=== PATIENT | female | born 1985 ===

== ENCOUNTER 2024-12-11 06:10 | Day surgery (SDC) | payer BC, SELFPAY ==
[2024-12-11] VITALS (8 sets, daily range): BP systolic 116–144; BP diastolic 64–82; BMI 27.8
[2024-12-11] MEDS: NORMOSOL-R/PLASMALYTE-A 1000 IV (11:38)
[2024-12-11] MEDS: ZOFRAN 4 MG IV (15:07)
[2024-12-11] MEDS: TYLENOL 650 MG PO (15:20)
== END 2024-12-11 15:00 | disposition home or self-care (01) ==
LOC: SDS 06:10
PROVIDERS: ATTENDING PHYSICIAN Otolaryngology Facial Plastic Surgery
DX: J34.2 Deviated nasal septum (principal); J34.3 Hypertrophy of nasal turbinates; J34.89 Other specified disorders of nose and nasal sinuses
CPT/HCPCS: 30140; 88304; 88311